=== PATIENT | female | born 2000 | race Caucasian/White ===

== ENCOUNTER 2018-04-27 12:38 | Inpatient (IN) | payer OTHER ==
[2018-04-27] MEDS: LACTATED RINGER'S 1,000 ML IV* ×3 (13:23→20:20)
[2018-04-27] MEDS ORDERED: MISOPROSTOL 200 MCG TAB PR (13:30)
[2018-04-27] MEDS ORDERED: METHYLERGONOVINE 0.2 MG INJ IM (13:30)
[2018-04-27] MEDS ORDERED: OXYTOCIN 30 UNITS/LR 500 ML IV (13:30)
[2018-04-27] MEDS ORDERED: AMPICILLIN 2 GM/NS (PMX) 100 ML IV (13:30)
[2018-04-27] MEDS ORDERED: BUTORPHANOL 2 MG INJ IV (13:30)
[2018-04-27 13:37] LABS: ADD MAN DIFF? NO
[2018-04-27 13:40] LABS: WHITE BLOOD COUNT 11.6 10^3/ul (4.8-10.8)
[2018-04-27 13:40] LABS: BASOPHILS % 0.3 % (0.0-2.0); EOSINOPHILS # 0.1 10^3/ul (0.0-0.5); EOSINOPHILS % 0.9 % (0.0-7.0); HEMOGLOBIN 12.1 g/dl (12.0-16.0); LYMPHOCYTES # 2.5 10^3/ul (0.8-2.9); LYMPHOCYTES % 21.6 % (18.0-55.0); MEAN CORPUSCULAR HGB CONC 32.7 g/dl (32.0-37.0); MEAN CORPUSCULAR VOLUME 79.4 fl (72.0-104.0); MEAN PLATELET VOLUME 10.2 fl (7.4-10.4); MONOCYTE # 1.1 10^3/ul (0.3-0.9); MONOCYTES % 9.4 % (0.0-13.0); NEUTROPHIL # 7.8 10^3/ul (1.6-7.5); NEUTROPHILS % 67.3 % (30.0-74.0); PLATELET COUNT 240 10^3/UL (140-415); RED BLOOD COUNT 4.66 10^6/ul (4.20-5.40); RED CELL DISTRIBUTION WIDTH 14.6 % (11.5-14.5)
[2018-04-27] MEDS ORDERED: NALOXONE (0.4 MG/ML) INJ IV (14:00)
[2018-04-27] MEDS ORDERED: ONDANSETRON 4 MG INJ IV (14:00)
[2018-04-27] MEDS ORDERED: DIPHENHYDRAMINE 50 MG INJ IV (14:00)
[2018-04-27 14:13] LABS: INR 0.85; PARTIAL THROMBOPLASTIN TIME 24.1 Sec (25.0-35.0); PROTIME 11.7 Sec (11.9-14.9); PT RATIO 0.9
[2018-04-27 14:28] LABS: HEPATITIS B SURFACE ANTIGEN NEGATIVE (NEGATIVE)
[2018-04-27 16:07] LABS: RAPID PLASMA REAGIN NONREACTIVE (NR)
[2018-04-27] MEDS ORDERED: AMPICILLIN 1 GM/NS (PMX) 50 ML IV (17:30)
[2018-04-27] MEDS: FENTAnyl 2MCG/ML-ROPIV 0.2% 100 ML BAG EPI (23:12)
[2018-04-28] MEDS: LACTATED RINGER'S 1,000 ML IV* ×3 (02:29→17:39)
[2018-04-28] MEDS: OXYTOCIN 30 UNITS/LR 500 ML IV ×3 (05:21→14:33)
[2018-04-28] MEDS: FENTAnyl 2MCG/ML-ROPIV 0.2% 100 ML BAG EPI (06:54)
[2018-04-28] MEDS: MINERAL OIL LIGHT 10 ML VIAL TOP (13:47)
[2018-04-28] MEDS: LIDOCAINE 1% (MPF) 30 ML INJ INJ (13:50)
[2018-04-28] MEDS: CARBOPROST 250 MCG INJ IM (14:02)
[2018-04-28] MEDS: IBUPROFEN 600 MG TAB PO ×3 (15:58→23:57)
[2018-04-28] MEDS ORDERED: HYDROCODONE/APAP (5/325) TAB PO (16:30)
[2018-04-28] MEDS ORDERED: MISOPROSTOL 200 MCG TAB PR (16:30)
[2018-04-28] MEDS ORDERED: ZOLPIDEM 5 MG TAB PO (16:30)
[2018-04-28] MEDS ORDERED: OXYTOCIN 30 UNITS/LR 500 ML IV (16:30)
[2018-04-28] MEDS ORDERED: CARBOPROST 250 MCG INJ IM (16:30)
[2018-04-28] MEDS ORDERED: METHYLERGONOVINE 0.2 MG INJ IM (16:30)
[2018-04-28] MEDS ORDERED: DIBUCAINE 1% 30 GM OINT PR (16:30)
[2018-04-28] MEDS: WITCH HAZEL/GLYCERIN PAD PR (16:54)
[2018-04-28] MEDS: LANOLIN 7 GM TUBE TOP (16:55)
[2018-04-28] MEDS: BENZOCAINE 20% 56 ML SPRAY TOP (16:55)
[2018-04-28] MEDS: CEPHALEXIN 500 MG CAP PO ×2 (17:38→23:56)
[2018-04-28] MEDS: HYDROCODONE/APAP (5/325) TAB PO (17:38)
[2018-04-28] MEDS: MAGNESIUM HYDROXIDE 30ML CUP PO (21:00)
[2018-04-28] MEDS: SENNA/DOCUSATE NA (8.6MG/50MG) TAB PO (23:56)
[2018-04-29] MEDS: LACTATED RINGER'S 1,000 ML IV* (00:17)
[2018-04-29] MEDS: CEPHALEXIN 500 MG CAP PO ×4 (05:55→23:05)
[2018-04-29] MEDS: IBUPROFEN 600 MG TAB PO ×4 (05:55→23:05)
[2018-04-29 08:33] LABS: ADD MAN DIFF? NO
[2018-04-29 08:38] LABS: BASOPHILS % 0.2 % (0.0-2.0); EOSINOPHILS # 0.1 10^3/ul (0.0-0.5); EOSINOPHILS % 0.9 % (0.0-7.0); HEMATOCRIT 21.5 % (37.0-47.0); HEMOGLOBIN 7.2 g/dl (12.0-16.0); LYMPHOCYTES # 2.7 10^3/ul (0.8-2.9); LYMPHOCYTES % 20.9 % (18.0-55.0); MEAN CORPUSCULAR HEMOGLOBIN 26.8 pg (29.0-33.0); MEAN CORPUSCULAR HGB CONC 33.5 g/dl (32.0-37.0); MEAN CORPUSCULAR VOLUME 79.9 fl (72.0-104.0); MEAN PLATELET VOLUME 10.9 fl (7.4-10.4); MONOCYTE # 1.3 10^3/ul (0.3-0.9); MONOCYTES % 10.2 % (0.0-13.0); NEUTROPHIL # 8.7 10^3/ul (1.6-7.5); NEUTROPHILS % 67.2 % (30.0-74.0); PLATELET COUNT 192 10^3/UL (140-415); RED BLOOD COUNT 2.69 10^6/ul (4.20-5.40); RED CELL DISTRIBUTION WIDTH 14.6 % (11.5-14.5)
[2018-04-29 08:38] LABS: WHITE BLOOD COUNT 12.9 10^3/ul (4.8-10.8)
[2018-04-29] MEDS: MAGNESIUM HYDROXIDE 30ML CUP PO ×2 (08:54→21:00)
[2018-04-29] MEDS: SENNA/DOCUSATE NA (8.6MG/50MG) TAB PO ×2 (08:54→21:00)
[2018-04-30] MEDS: HYDROCODONE/APAP (5/325) TAB PO (03:24)
[2018-04-30] MEDS: IBUPROFEN 600 MG TAB PO ×2 (06:28→12:09)
[2018-04-30] MEDS: CEPHALEXIN 500 MG CAP PO ×2 (06:28→12:08)
[2018-04-30] MEDS: VARICELLA VACCINE LIVE/PF 1,350 UNIT/0.5 ML ML SC* (09:00)
[2018-04-30] MEDS: DIPHTH/TET/ACEL PERTUSS (ADULT) 0.5 ML VIAL IM* (09:00)
[2018-04-30] MEDS: MEASLES,MUMPS,RUBELLA VACCINE INJ SC* (09:00)
[2018-04-30] MEDS: SENNA/DOCUSATE NA (8.6MG/50MG) TAB PO (10:52)
[2018-04-30] MEDS: MAGNESIUM HYDROXIDE 30ML CUP PO (10:53)
== END 2018-04-30 16:28 | disposition home or self-care (01) | DRG 775 ==
LOC: OBT 12:38 → L-D 12:40 → OBT 12:59 → L-D 13:08 → PP1 04-28 16:11
PROVIDERS: Obstetrics & Gynecology
PROC: 10E0XZZ Delivery of Products of Conception, External Approach (ICD-10-PCS; principal; 2018-04-28)
PROC: 0W8NXZZ Division of Female Perineum, External Approach (ICD-10-PCS; 2018-04-28)
DX: O76 Abnormality in fetal heart rate and rhythm complicating labor and delivery (principal); Z3A.40 40 weeks gestation of pregnancy; Z37.0 Single live birth
CPT/HCPCS: 62319; 85025; 85610; 85730; 86592; 86850; 86900; 86901; 87340

== ENCOUNTER 2019-03-02 11:59 | Emergency (ER) | payer OTHER ==
[2019-03-02 13:17] LABS: ADD MAN DIFF? NO
[2019-03-02 13:23] LABS: BASOPHILS % 0.4 % (0.0-2.0); EOSINOPHILS # 0.1 10^3/ul (0.0-0.5); EOSINOPHILS % 1.4 % (0.0-7.0); HEMOGLOBIN 11.7 g/dl (12.0-16.0); LYMPHOCYTES # 2.5 10^3/ul (0.8-2.9); LYMPHOCYTES % 30.4 % (18.0-55.0); MEAN CORPUSCULAR HEMOGLOBIN 23.9 pg (29.0-33.0); MEAN CORPUSCULAR HGB CONC 31.6 g/dl (32.0-37.0); MEAN CORPUSCULAR VOLUME 75.5 fl (72.0-104.0); MEAN PLATELET VOLUME 10.7 fl (7.4-10.4); MONOCYTE # 0.7 10^3/ul (0.3-0.9); MONOCYTES % 8.1 % (0.0-13.0); NEUTROPHILS % 59.5 % (30.0-74.0); PLATELET COUNT 277 10^3/UL (140-415); RED CELL DISTRIBUTION WIDTH 14.7 % (11.5-14.5)
[2019-03-02 13:23] LABS: WHITE BLOOD COUNT 8.4 10^3/ul (4.8-10.8)
[2019-03-02 13:35] LABS: ADD UMIC YES; UR ASCORBIC ACID NEGATIVE (NEGATIVE); UR BACTERIA FEW /HPF (NONE SEEN); UR BILIRUBIN (Dip) NEGATIVE (NEGATIVE); UR BLOOD (Dip) NEGATIVE (NEGATIVE); UR BUDDING YEAST FEW /HPF (NONE SEEN); UR CLARITY CLOUDY (CLEAR); UR COLOR AMBER (YELLOW); UR GLUCOSE (Dip) NEGATIVE (NEGATIVE); UR KETONES (Dip) TRACE mg/dL (NEGATIVE); UR LEUKOCYTE ESTERASE (Dip) 2+ Leu/ul (NEGATIVE); UR MUCUS MANY /HPF (NONE SEEN); UR NITRITE (Dip) NEGATIVE (NEGATIVE); UR RBC 13 /HPF (0-5); UR SPECIFIC GRAVITY (Dip) 1.027 (1.003-1.030); UR SQUAMOUS EPITHELIAL CELL MANY /HPF (FEW); UR TOTAL PROTEIN (Dip) 1+ mg/dl (NEGATIVE); UR UROBILINOGEN (Dip) NEGATIVE (NEGATIVE); UR WBC 23 /HPF (0-5)
== END 2019-03-02 14:53 | disposition home or self-care (01) ==
LOC: FTE 11:59
DX: O02.1 Missed abortion (principal)
CPT/HCPCS: 36415; 76801; 81001; 84702; 85025; 86900; 86901; 99284-25